=== PATIENT | male | born 1975 | race Caucasian/White ===

== ENCOUNTER 2016-11-13 06:04 | Emergency (ER) | payer SELFPAY ==
[~2016-11-13] VITALS: Ht 182.9 cm; Wt 81.6 kg
[2016-11-13] MEDS ORDERED: NKM (06:08)
[2016-11-13 06:11] VITALS: BP 127/80
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
[2016-11-13 06:49] LABS: BASOPHILS % (AUTO) 0.7 % (0.0-2.0); EOSINOPHILS % (AUTO) 0.2 % (0.0-3.0); LYMPHOCYTES % (AUTO) 9.5 % (20.0-45.0); MEAN CORPUSCULAR HEMOGLOBIN 33.8 PG (27.0-31.0); MEAN CORPUSCULAR VOLUME 94 FL (80-99); MEAN PLATELET VOLUME 6.3 FL (6.5-10.1); MONOCYTES % (AUTO) 5.3 % (1.0-10.0); NEUTROPHILS % (AUTO) 84.4 % (45.0-75.0); PLATELET COUNT 218 K/UL (150-450); RED BLOOD COUNT 4.15 M/UL (4.70-6.10); RED CELL DISTRIBUTION WIDTH 11.2 % (11.6-14.8); WHITE BLOOD COUNT 11.2 K/UL (4.8-10.8)
[2016-11-13 06:54] LABS: PROTHROMBIN TIME 10.3 SEC (9.30-11.50)
[2016-11-13 07:01] LABS: TROPONIN I < 0.30 ng/mL (<=0.30)
[2016-11-13 07:02] LABS: ALANINE AMINOTRANSFERASE 48 U/L (3-41); ALBUMIN/GLOBULIN RATIO 1.9 (1.0-2.7); ANION GAP 15 (5-15); ASPARTATE AMINO TRANSFERASE 34 U/L (5-40); CALCIUM 8.6 mg/dL (8.6-10.2); CARBON DIOXIDE 25 mEQ/L (20-30); CHLORIDE 103 mEQ/L (98-107); CREATININE 1.1 mg/dL (0.7-1.2); GLOMERULAR FILTRATION RATE > 60 mL/min (>60); HEMOLYSIS 3; POTASSIUM 4.1 mEQ/L (3.4-4.9); SODIUM 143 mEQ/L (135-145); TOTAL PROTEIN 6.5 g/dL (6.6-8.7)
[2016-11-13 07:27] VITALS: BP 122/80
[2016-11-13 07:28] VITALS: BP 122/80
--- NOTE | 2016-11-13 08:54 | Diagnostic Imaging Report ---
Indication: Shortness of breath Technique: XRAY CHEST 1 V Comparison: None Findings: The cardiomediastinal silhouette is within normal limits. There is no focal consolidation, pneumothorax or pleural effusion. Osseous structures demonstrate no acute abnormality. Impression: No acute cardiopulmonary disease.
== END 2016-11-13 07:25 | disposition home or self-care (01) ==
LOC: EDBD 06:04 → EMR 06:15
DX: E86.0 Dehydration (principal); R42 Dizziness and giddiness; R06.02 Shortness of breath
CPT/HCPCS: 36415; 71010; 80053; 82550; 84484; 85025; 85610; 85730; 93005; 96360; 99284

== ENCOUNTER 2016-12-02 19:45 | Emergency (ER) | payer MEDICAID ==
[~2016-12-02] VITALS: Ht 177.8 cm; Wt 81.6 kg
[~2016-12-02 19:45] MED LIST: NKM
[2016-12-02] MEDS ORDERED: NKM (19:52)
[2016-12-02 21:10] VITALS: BP 126/78
[2016-12-02 21:25] VITALS: BP 121/74
--- NOTE | 2016-12-02 22:14 | Emergency Room Report ---
History of Present Illness General Chief Complaint: Dizziness Source: Patient, EMS Present Illness HPI The patient is a 41-year-old male who denies medical history presenting for dizziness. He states that this began approximately 30 minutes prior to arrival and has now resolved. He was seen in this emergency department last month for the same complaints. Blood work was done which was unremarkable. He states that he felt as if the room was spinning around him. He denies any known aggravating or relieving factors. He denies using any medications or drug use. He does state that he has not been needing or drinking water as much as he should. He denies other symptoms including headache, blurred vision, neck pain or stiffness, fatigue, chest pain, shortness of breath Allergies: Coded Allergies: No Known Allergies (Unverified , 11/13/16) Patient History Past Medical History: see triage record Pertinent Family History: none Reviewed Nursing Documentation: PMH: Agreed, PSxH: Agreed Review of Systems All Other Systems: negative except mentioned in HPI Physical Exam Vital Signs Date Time Temp Pulse Resp B/P (MAP) Pulse Ox O2 Delivery O2 Flow Rate FiO2 12/02/16 19:48 98.4 86 18 126/78 100 Room Air Sp02 EP Interpretation: reviewed, normal General Appearance: no apparent distress, alert, GCS 15, non-toxic Head: normocephalic, atraumatic Eyes: bilateral eye normal inspection, bilateral eye PERRL, bilateral eye EOMI ENT: hearing grossly normal, normal pharynx, no angioedema, normal voice Neck: full range of motion, supple/symm/no masses Respiratory: chest non-tender, lungs clear, normal breath sounds, speaking full sentences Cardiovascular #1: regular rate, rhythm, no edema Musculoskeletal: back normal, gait/station normal, normal range of motion, non- tender Neurologic: alert, oriented x3, responsive, motor strength/tone normal, sensory intact, speech normal Psychiatric: judgement/insight normal, memory normal, mood/affect normal, no suicidal/homicidal ideation Skin: normal color, no rash, warm/dry, well hydrated Medical Decision Making PA Attestation Dr. Small is my supervising physician. Patient management was discussed with my supervising physician Diagnostic Impression: Primary Impression: Dizziness ER Course The patient is a 41-year-old male who denies medical history presenting for dizziness Differential diagnoses considered but not limited to: Benign positional vertigo , positional hypotension, labyrinthitis, Mnire's disease, ICH, sinusitis, among others PE: Afebrile. NAD PERRL. EOMI. No sinus tenderness neck is soft and supple. Full AROM RRR Lungs CTA bilat EKG, chest x-ray, and CT head are all unremarkable. No acute findings Blood work was done at last visit. Unremarkable. The patient states that he is not experiencing any symptoms at this point. He'll be discharged home been told he needs to follow up with his primary doctor. ER precautions are given EKG Diagnostic Results EP Interpretation: NSR Rate: normal - 80 Rhythm: NSR ST Segments: no acute changes ASA given to the pt in ED: No PA Scribe Text EKG was reviewed and read with my supervising physician. No acute ST segment changes are seen. Normal rate and rhythm. No acute changes. Chest X-Ray Diagnostic Results Chest X-Ray Diagnostic Results : Chest X-Ray Ordered: Yes # of Views/Limited/Complete: 1 View Indication: Other - dizziness EP Interpretation: Yes Interpretation: no consolidation, no effusion, no pneumothorax Impression: No acute disease Electronically Signed by: BRADEN Ramirez Scribe Text My and my supervising physician's interpretation of the chest xrays are there is no consolidation, no effusion, no acute cardiopulmonary disease, no pneumothorax CT/MRI/US Diagnostic Results CT/MRI/US Diagnostic Results : Imaging Test Ordered: CT head Impression No acute intracranial abnormalities. Irregularity of the skull in the high right parietal bone which may be related to prior surgical changes or prior trauma. Old fracture deformities of the mandible. Old fracture deformities of the maxillary sinus. Last Vital Signs Date Time Temp Pulse Resp B/P (MAP) Pulse Ox O2 Delivery O2 Flow Rate FiO2 12/02/16 21:25 82 16 121/74 100 Room Air 12/02/16 21:10 98.1 Status: improved Disposition: HOME, SELF-CARE Condition: Improved Referrals: NOT CHOSEN IPA/,REFERRING (PCP) Patient Instructions: Dizziness Additional Instructions: I discussed my findings with the patient. All questions and concerns have been answered. Treatment and medication compliance have been addressed. I advised the patient that they need to follow up with primary doctor as soon as possible. Return to ED if symptoms worsen, new symptoms arise, or if needed for any reason. Patient verbalized understanding of discharge instructions. MARIA A PIEDRA Dec 02, 2016 22:14
--- NOTE | 2016-12-03 09:32 | Diagnostic Imaging Report ---
Indication: DIZZY Comparison: 11/13/2016 Findings: Single view of the chest shows a normal cardiomediastinal silhouette. Pulmonary vasculature is normal. Lung are clear. Soft tissues and osseous structures are within normal limits. Impression: No acute chest disease
--- NOTE | 2016-12-03 09:35 | Diagnostic Imaging Report ---
Indication: Dizziness Comparison: None Technique: Contiguous helical CT images through the brain was performed without intravenous contrast. Axial, coronal and sagittal reconstructions were reformatted. CT dose: Total DLP 1442 mGycm, CTDI volume 70.4 mGy Findings: There is no acute intracranial hemorrhage or infarct. No mass, mass effect or midline shift is identified. Ventricles and sulci are within normal limits. No extra-axial fluid collections are seen. There is irregularity of the skull in the high right parietal bone which may be related to prior surgical changes or prior trauma. Old fracture deformities of the mandible. Old fracture deformities of the maxillary sinuses. Mastoid air cells are clear. There is some mucosal thickening in the right maxillary sinus. Impression: No acute intracranial abnormalities. Irregularity of the skull in the high right parietal bone which may be related to prior surgical changes or prior trauma. Old fracture deformities of the mandible. Old fracture deformities of the maxillary sinus. The CT scanner at [facility] is accredited by the [employer] and the scans are performed using protocols designed to limit radiation exposure to as low as reasonably achievable to attain images of sufficient resolution adequate for diagnostic evaluation.
--- NOTE | 2016-12-13 08:31 | Cardiology Report ---
APPROVED REPORT EKG Measurement Heart [id number] Normal sinus rhythm Normal ECG
[2016-12-28] MEDS ORDERED: NKM (04:02)
== END 2016-12-02 21:25 | disposition home or self-care (01) ==
LOC: EDUNIT# 19:45 → EDBD 19:45 → EMR 20:04
DX: R42 Dizziness and giddiness (principal)
CPT/HCPCS: 70450; 71010; 93005; 99284

== ENCOUNTER 2016-12-28 04:04 | Emergency (ER) | payer MEDICAID ==
[~2016-12-28] VITALS: Ht 182.9 cm; Wt 86.2 kg
[2016-12-28] MEDS ORDERED: LORazepam 1mg tab ORAL ONE ×2 (04:30→08:30)
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
[2016-12-28 05:06] LABS: BASOPHILS % (AUTO) 0.7 % (0.0-2.0); EOSINOPHILS % (AUTO) 0.2 % (0.0-3.0); HEMATOCRIT 41.4 % (42.0-52.0); HEMOGLOBIN 14.5 G/DL (14.2-18.0); LYMPHOCYTES % (AUTO) 16.2 % (20.0-45.0); MEAN CORPUSCULAR VOLUME 94 FL (80-99); MONOCYTES % (AUTO) 7.4 % (1.0-10.0); NEUTROPHILS % (AUTO) 75.4 % (45.0-75.0); PLATELET COUNT 235 K/UL (150-450); RED BLOOD COUNT 4.42 M/UL (4.70-6.10); RED CELL DISTRIBUTION WIDTH 12.3 % (11.6-14.8); WHITE BLOOD COUNT 7.3 K/UL (4.8-10.8)
[2016-12-28 05:22] LABS: ALANINE AMINOTRANSFERASE 50 U/L (12-78); ALBUMIN 4.1 G/DL (3.4-5.0); ALBUMIN/GLOBULIN RATIO 1.5 (1.0-2.7); ALKALINE PHOSPHATASE 62 U/L (46-116); ANION GAP 7 mmol/L (5-15); ASPARTATE AMINO TRANSFERASE 31 U/L (15-37); BILIRUBIN,TOTAL 0.7 MG/DL (0.2-1.0); BLOOD UREA NITROGEN 15 mg/dL (7-18); CALCIUM 9.3 MG/DL (8.5-10.1); CARBON DIOXIDE 31 MMOL/L (21-32); CHLORIDE 103 MMOL/L (98-107); CREATININE 1.3 MG/DL (0.55-1.30); POTASSIUM 4.2 MMOL/L (3.5-5.1); SODIUM 141 MMOL/L (136-145)
[2016-12-28 06:44] VITALS: BP 145/87
[2016-12-28 07:42] VITALS: BP 145/87
[2016-12-28] MEDS ORDERED: Haloperidol 5mg/ml Inj ONE (08:07)
[2016-12-28] MEDS ORDERED: LORazepam Inj 2mg/ml 1ml ONE (08:07)
[2016-12-28] MEDS ORDERED: DiphenhydrAMINE 50mg/ml Inj ONE (08:25)
[2016-12-28] MEDS ORDERED: Haloperidol 5mg/ml Inj IM ONE (08:30)
[2016-12-28] MEDS ORDERED: DiphenhydrAMINE 50mg/ml Inj IM ONE (08:30)
[2016-12-28] MEDS ORDERED: LORazepam Inj 2mg/ml 1ml IM ONE (08:30)
--- NOTE | 2016-12-28 08:33 | Emergency Room Report ---
Physical Exam Vital Signs Date Time Temp Pulse Resp B/P (MAP) Pulse Ox O2 Delivery O2 Flow Rate FiO2 12/28/16 04:02 98.2 80 16 144/91 99 Room Air Medical Decision Making Diagnostic Impression: Primary Impression: Behavioral change Additional Impressions: Suicidal ideation Homicidal ideation ER Course Patient endorsed to me pending psychiatric evaluation. I encountered patient multiple times; patient has extreme paranoia and is not willing to follow instructions. Patient is making aggressive advancement towards nursing staff I attempted to calm patient with his daily psych meds of Wellbutrin and Seroquel I do not believe patient is able to be discharged at this time. Will require psychiatric evaluation Patient is medically cleared however he may require Haldol/Ativan/Benadryl for adequate sedation Last Vital Signs Date Time Temp Pulse Resp B/P (MAP) Pulse Ox O2 Delivery O2 Flow Rate FiO2 12/28/16 07:42 98.9 94 18 145/87 100 Room Air Status: unchanged Disposition: XFER TO PSYCH HOSP/UNIT Condition: Serious Referrals: NOT CHOSEN SONIDO/,REFERRING (PCP) PABLITO ALMARAZ M.D. Dec 28, 2016 08:33
[2016-12-28 09:00] VITALS: BP 116/75
[2016-12-28 09:15] VITALS: BP 121/69
[2016-12-28 09:45] VITALS: BP 118/82
[2016-12-28 16:00] VITALS: BP 118/82
== END 2016-12-28 16:00 ==
LOC: EDBD 04:04 → EMR 04:29
DX: F91.9 Conduct disorder, unspecified (principal); R45.850 Homicidal ideations; R45.851 Suicidal ideations; F43.10 Post-traumatic stress disorder, unspecified; F41.9 Anxiety disorder, unspecified; F31.9 Bipolar disorder, unspecified
CPT/HCPCS: 36415; 80053; 80307; 80329; 85025; 96372; 99285; J1200; J1630